=== PATIENT | male | born 1980 | race Caucasian/White ===

== ENCOUNTER 2016-12-13 11:13 | Observation (INO) | payer BC ==
[~2016-12-13] VITALS: Ht 177.8 cm; Wt 80.7 kg
[~2016-12-13 11:13] MED LIST: CLOBEX59 ML
--- NOTE | 2016-12-13 11:20 | NUR ---
PATIENT SITTING UP IN CHAIR AT BEDSIDE. NO SIGNS OF DISTRESS NOTED. CASAS, MORGUE TECHNICIAN AT BEDSIDE. CALL LIGHT IN REACH.
[2016-12-13 12:22] VITALS: BMI 25.5
[2016-12-13 13:53] LABS: BASOPHILS 0.1 % (0-2); EOSINOPHILS 0.4 % (0-7); HEMATOCRIT 44.3 % (42.0-54.0); HEMOGLOBIN 15.4 g/dL (13.5-17.5); IMMATURE GRANULOCYTES 0.3 % (0-5); LYMPHOCYTES 15.3 % (15-50); MCH 33.2 pg (26.0-34.0); MCHC 34.8 g/dL (31.0-37.0); MCV 95.5 fL (80.0-100.0); MEAN PLATELET VOLUME 10.2 fL (7.4-10.4); MONOCYTES 8.6 % (2-11); NEUTROPHILS 75.3 % (40-80); PLATELET COUNT 186 10x3/uL (130-400); RBC 4.64 10x6/uL (4.20-6.10); RDW 12.9 % (11.5-14.5); WBC 9.4 10x3/uL (4.8-10.8)
[2016-12-13 13:59] LABS: ALBUMIN 3.7 g/dL (3.4-5.0); ALKALINE PHOSPHATASE 98 U/L (46-116); ALT (SGPT) 47 U/L (10-68); AMYLASE - SERUM 37 U/L (25-115); BILIRUBIN - TOTAL 0.58 mg/dL (0.2-1.3); CALC OSMOLALITY 274 mosm/kg (275-300); CALCIUM 9.1 mg/dL (8.5-10.1); CARBON DIOXIDE 30.8 mmol/L (21.0-32.0); CHLORIDE - SERUM 101 mmol/L (98-107); GLUCOSE 104 mg/dL (74-106); LIPASE 147 U/L (73-393); POTASSIUM - SERUM 3.9 mmol/L (3.5-5.1); PROTEIN - SERUM 7.5 g/dL (6.4-8.2); SODIUM 138 mmol/L (136-145); UREA NITROGEN 9 mg/dL (7-18); eGFR NON AFRICAN AMERICAN 89 mL/min (90-120)
--- NOTE | 2016-12-13 14:02 | NUR ---
IV FLUIDS INITIATED. ALSO FLAGYL INFUSING. EXPLAINED AND OFFERED SCDs BUT PATIENT REFUSED. URINAL GIVEN TO PATIENT AND [place] HAT PLACED IN BR. CARE PLAN REVIEWED. CALL LIGHT IN REACH. AT BEDSIDE. WILL CONTINUE WITH PLAN OF CARE.
--- NOTE | 2016-12-13 14:17 | NUR ---
ESGIC WITH SIP OF WATER. WILL PLACE NGT WHEN MED DIGESTS.
--- NOTE | 2016-12-13 14:45 | NUR ---
Patient Name: AUSTEN ARRIAGA Admission Status: Urgent Accout number: [id number] Admission Date: 12-13-2016 : 1980 Admission Diagnosis: Attending: DANYEL Current LOS: 1 Anticipated DC Date: 12-14-2016 Planned Disposition: Home Primary Insurance: [employer] [facility] Discharge Planning Comments: CM MET WITH PATIENT REGARDING D/C NEEDS AND PLANS. PATIENT STATED HE LIVES WITH HIS (SAMINA) AND SHE WILL DRIVE HIM HOME AT DISCHARGE. PATIENT STATED HE HAS NO STEPS OR STAIRS AT HIS HOME. PATIENT IS INDEPENDENT WITH HIS CARE AND HAS NO DME AT HOME. PATIENTS PCP IS DR. VALIENTE (LOAGN ARGUETA MOSTLY PER PATIENT). PATIENT USES [facility] ON [address] FOR HIS PHARMACY. PATIENT STATED HE DOES NOT NEED HOME HEALTH. CM WILL CONTINUE TO FOLLOW PATIENT WITH D/C NEEDS AND PLANS. PCP DR. STEFF[facility] [address] --- [phone] SAMINA () [phone] Quality Systems Specialist: Marie Fan Is the patient Alert and Oriented? Yes 0 * How many steps to enter\exit or inside your home? 0 0 * PCP DR. VALIENTE (LOGAN ARGUETA APN) 0 * Pharmacy [facility] [address] 0 * Preadmission Environment Home with Family 0 * ADLs Independent 0 * Equipment None 0 * List name and contact numbers for known caregivers / representatives who currently or will assist patient after discharge: SAMINA () [phone] 0 * Community resources currently utilized None 0 * Additional services required to return to the preadmission environment? Yes 0 * Can the patient safely return to the preadmission environment? Yes 0 * Has this patient been hospitalized within the prior 30 days at any hospital? No 0 Grand Total: 0
[2016-12-13 15:33] VITALS: BP 128/72
--- NOTE | 2016-12-13 16:34 | NUR ---
STOOL SAMPLE COLLECTED AND SENT TO LAB FOR TESTS.
--- NOTE | 2016-12-13 18:56 | NUR ---
NO CHANGES IN INITIAL ASSESSMENT. CALL LIGHT IN REACH. WILL CONTINUE WITH PLAN OF ARE. STILL REFUSES SCDs.
[2016-12-13 20:00] VITALS: BP 123/75
[2016-12-14] VITALS: BP 123/84
--- NOTE | 2016-12-14 02:46 | NUR ---
PT SLEEPING. ADMITTED FOR SBO. RESP EASY. NO DISTRESS NOTED. CONTINUE ALLERGY AND IMMUNOLOGY SPECIALIST'S PLAN OF CARE.
[2016-12-14 04:00] VITALS: BP 104/66
[2016-12-14 05:20] LABS: BASOPHILS 0.3 % (0-2); EOSINOPHILS 1.4 % (0-7); HEMOGLOBIN 14.5 g/dL (13.5-17.5); IMMATURE GRANULOCYTES 0.3 % (0-5); LYMPHOCYTES 19.8 % (15-50); MCH 32.7 pg (26.0-34.0); MCHC 34.5 g/dL (31.0-37.0); MCV 94.8 fL (80.0-100.0); MEAN PLATELET VOLUME 9.8 fL (7.4-10.4); MONOCYTES 10.8 % (2-11); NEUTROPHILS 67.4 % (40-80); PLATELET COUNT 174 10x3/uL (130-400); RBC 4.43 10x6/uL (4.20-6.10); RDW 12.8 % (11.5-14.5); WBC 7.9 10x3/uL (4.8-10.8)
[2016-12-14 05:43] LABS: ALBUMIN 3.1 g/dL (3.4-5.0); ALKALINE PHOSPHATASE 76 U/L (46-116); ALT (SGPT) 44 U/L (10-68); CALC OSMOLALITY 277 mosm/kg (275-300); CALCIUM 8.6 mg/dL (8.5-10.1); CARBON DIOXIDE 27.9 mmol/L (21.0-32.0); CHLORIDE - SERUM 105 mmol/L (98-107); CREATININE - SERUM 0.9 mg/dL (0.6-1.3); GLUCOSE 102 mg/dL (74-106); POTASSIUM - SERUM 4.2 mmol/L (3.5-5.1); PROTEIN - SERUM 6.5 g/dL (6.4-8.2); SODIUM 140 mmol/L (136-145); UREA NITROGEN 9 mg/dL (7-18); eGFR NON AFRICAN AMERICAN > 90 mL/min (90-120)
--- NOTE | 2016-12-14 06:36 | NUR ---
PATIENT RECIEVED A FIORECET WITH HIS NIGHT TIME MEDS. NO OTHER CHANGES NOTED FROM ASSESSMENT.
--- NOTE | 2016-12-14 07:15 | NUR ---
REPORT RCEIVED FROM DESK MANAGER NURSE.
[2016-12-14 08:13] VITALS: BP 114/71
--- NOTE | 2016-12-14 08:20 | NUR ---
ASSESSMENT COMPLETED. REFUSES SCDs. CALL LIGHT IN REACH. WILL CONTINUE WITH PLAN OF CARE.
--- NOTE | 2016-12-14 10:46 | NUR ---
AM MEDS ADMINISTERED. CALL LIGHT IN REACH.
[2016-12-14 11:58] VITALS: BP 125/61
[2016-12-14 12:54] VITALS: Ht 177.8 cm; Wt 80.7 kg
--- NOTE | 2016-12-14 13:00 | NUR ---
PATIENT IS AWAKE, ALERT AND ORIENTED X'S 4. RESPRIATONS ARE EVEN AND UNLABORED ON ROOM AIR. PATIENT JUST FINISHED LUNCH, STATED HE IS HAVING ABDOMINAL CRAMPS THAT STARTED BEFORE LUNCH. PATIENT DENIES NEEDS. BED IN LOWEST POSITION, CALL LIGHT IN REACH. BED RAILS UP X'S 2.
[2016-12-14 16:10] VITALS: BP 119/77
--- NOTE | 2016-12-14 17:00 | NUR ---
ASSUMED CARE OF PATIENT AAO TIMES 4 SITTING UP IN BED. REPORTS HAVEIN 5 LIQUID BMS TODAY. NO MEASUREMENT DEVICE IN TOILET. INFORMED PT. THAT STOOL OUTPUT NEEDS TO BE MEASURE. HE WILL INFORM NURSING OF BMS FOR ACCURATE I/O.
--- NOTE | 2016-12-14 19:25 | NUR ---
PT SITTING UP IN BED, ASSESSMENT COMPLETED, NO ACUTE DISTRESS NOTED, DENIES NEEDS, SR'S UP, CL IN REACH, WILL MONITOR
[2016-12-14 20:00] VITALS: BP 120/88
--- NOTE | 2016-12-14 20:22 | NUR ---
[place] GIVEN PER MAR, LAZ WELL, CL IN REACH
--- NOTE | 2016-12-14 21:48 | NUR ---
CAROL WANG PER ROSS, LAZ WELL, DENIES NEEDS, FALL PRECAUTIONS IN PLACE,CL IN REACH
--- NOTE | 2016-12-14 23:24 | NUR ---
RESTING WITH EYES CLOSED, RESP WITH EASE, NO DISTRESS NOTED, CL IN REACH
[2016-12-15] VITALS: BP 108/74
[2016-12-15 04:00] VITALS: BP 105/60
[2016-12-15 05:36] LABS: BASOPHILS 0.2 % (0-2); EOSINOPHILS 1.4 % (0-7); HEMATOCRIT 41.7 % (42.0-54.0); HEMOGLOBIN 14.3 g/dL (13.5-17.5); IMMATURE GRANULOCYTES 0.2 % (0-5); LYMPHOCYTES 15.7 % (15-50); MCH 32.7 pg (26.0-34.0); MCHC 34.3 g/dL (31.0-37.0); MCV 95.4 fL (80.0-100.0); MEAN PLATELET VOLUME 10.2 fL (7.4-10.4); MONOCYTES 9.4 % (2-11); NEUTROPHILS 73.1 % (40-80); PLATELET COUNT 184 10x3/uL (130-400); RBC 4.37 10x6/uL (4.20-6.10); RDW 12.8 % (11.5-14.5); WBC 9.4 10x3/uL (4.8-10.8)
[2016-12-15 06:19] LABS: ALBUMIN 3.3 g/dL (3.4-5.0); ALKALINE PHOSPHATASE 91 U/L (46-116); ALT (SGPT) 45 U/L (10-68); BILIRUBIN - TOTAL 0.43 mg/dL (0.2-1.3); CALC OSMOLALITY 276 mosm/kg (275-300); CALCIUM 8.8 mg/dL (8.5-10.1); CARBON DIOXIDE 27.3 mmol/L (21.0-32.0); CHLORIDE - SERUM 105 mmol/L (98-107); CREATININE - SERUM 1.1 mg/dL (0.6-1.3); GLUCOSE 98 mg/dL (74-106); POTASSIUM - SERUM 4.2 mmol/L (3.5-5.1); PROTEIN - SERUM 6.5 g/dL (6.4-8.2); SODIUM 140 mmol/L (136-145); UREA NITROGEN 7 mg/dL (7-18); eGFR NON AFRICAN AMERICAN 79 mL/min (90-120)
--- NOTE | 2016-12-15 08:02 | NUR ---
AWAKE AND ALERT. OIRENTED X3. C/O HEADACHE AND STOMACH PAIN LEVEL 5. REQUESTED AND GIVNE 25MG DEMEROL SLOW IVP FOR SAME. WILL MONITOR. LUNGS ARE CLEAR BILATERALLY, NO COUGH NOTED. SKIN IS INTACT WITHOUT REDNESS. REPORTED 3 LOOSE DIARRHEA STOOLS IN PM. WILL CONTINUE TO MONITOR. IV TO RIGHT FOREARM IS PATENT WITHOUT REDNESS AT INSERTION SITE. DENIES NEEDS.
[2016-12-15 08:14] VITALS: BP 120/75
--- NOTE | 2016-12-15 09:00 | NUR ---
REPORTS PAIN IMPROVED AFTER DEMEROL.
[2016-12-15 12:05] VITALS: BP 115/73
[2016-12-15] MEDS ORDERED: FLORAJEN3 CAPS460 MG PO (14:11)
[2016-12-15] MEDS ORDERED: ESGIC TABLET1 TAB PO (14:11)
[2016-12-15] MEDS ORDERED: ZOFRAN8 MG PO (14:12)
[2016-12-15] MEDS ORDERED: MEPERIDINE HCL50 MG PO (14:12)
[2016-12-15] MEDS ORDERED: CIPRO500 MG PO (14:12)
[2016-12-15] MEDS ORDERED: FLAGYL500 MG PO (14:13)
--- NOTE | 2016-12-15 15:11 | NUR ---
DISCHARGED TO HOME AMBULATORY WITH FRIEND. DISCHARGE INSTRUCTIONS GIVEN BOTH VERBALLY AND WRITTEN. ALL QUESTIONS ANSWERED. PATIENT VERBALIZED UNDERSTANDING OF SAME. SOME PERSCRIPTIONS ESCRIBED TO PHARMACY OF CHOICE. HARD COPY GIVEN TO PATIENT FOR DEMEROL TABS. IV TO RIGHT FOREARM D/C WITH CATHETER INTACT.
--- NOTE | 2016-12-15 16:52 | NUR ---
PATIENT CALLED STATING THAT THE ESGIC THAT WAS PRESCRIBED & ESCRIBED TO ELVA WAS NOT AT THE PHARMACY WHEN HE PICKED UP THE REST OF HIS MEDS. 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 CALL PLACED TO DR MONTAÑO. HE STATED THAT THE ESGIC WAS FOR HEADACHE PRN, AND THAT THE PATIENT SHOULD TRY EXCEDRIN MIGRAINE IF HEADACHE OCCURS. CALL TO MR ARRIAGA TO RELAY MESSAGE FROM DR MONTAÑO REGARDING MEDICATION RECOMMENDATION. PATIENT REPLIES THAT HE PROBABLY WONT NEED IT BUT WILL TRY THE EXCEDRIN MIGRAINE IF NECESSARY.
[2016-12-20 03:10] LABS: OVA + PARASITE EXAM Final report (())
== END 2016-12-15 15:12 | disposition home or self-care (01) ==
LOC: D.SDCHOLD 11:13 → OBSVTIME 11:13 → D.MS 11:13
PROVIDERS: ADMIT Family Medicine
DX: K52.9 Noninfective gastroenteritis and colitis, unspecified (principal); K56.69 Other intestinal obstruction; R11.2 Nausea with vomiting, unspecified; R10.9 Unspecified abdominal pain; R19.5 Other fecal abnormalities; R19.8 Other specified symptoms and signs involving the digestive system and abdomen